=== PATIENT | female | born 2000 | race Caucasian/White ===

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

== ENCOUNTER 2018-07-17 18:51 | Emergency (ER) | END 2018-07-17 20:52 | disposition home or self-care (01) ==

== ENCOUNTER 2018-11-27 09:58 | Emergency (ER) | payer MEDICAID, OTHER ==
[~2018-11-27] VITALS: Wt 65.7 kg
[~2018-11-27 09:58] MED LIST changes: +AMOX500C2 PO; +FAMO-96 PO; +HYDR-4011 PO; -HYDR-906 PO; -NAPR-260 PO; +NAPR-985 PO
[2018-11-27 10:05] VITALS: BP 122/74; PULSE 99; RESP 18
[2018-11-27] MEDS ORDERED: ONDANSETRON (ODT) 4 MG TAB ODT STA (11:23)
[2018-11-27] MEDS ORDERED: ONDA8TAB14 PO (11:55)
--- NOTE | 2018-12-05 17:59 | ERD ---
ER Documentation Chief Complaint Chief Complaint vomiting,diarrhea today HPI 18-year-old female presents emerged department complaining of nonbilious nonbloody vomiting and nonbloody diarrhea since today. She denies any fevers. Denies abdominal pain. Denies any history of abdominal surgeries ROS All systems reviewed and are negative except as per history of present illness. Medications Home Meds Active Scripts Ondansetron (Ondansetron Odt) 8 Mg Tab.rapdis, 8 MG PO Q6H PRN for NAUSEA AND/OR VOMITING, #30 TAB Prov:DICK THORNEC 11/27/18 Famotidine* (Pepcid*) 20 Mg Tablet, 20 MG PO BID for 4 Days, TAB Prov:SARAH PINEDO 07/17/18 Ibuprofen* (Motrin*) 600 Mg Tab, 600 MG PO Q6, #30 TAB Prov:SARAH PINEDO 07/17/18 Ibuprofen* (Motrin*) 600 Mg Tab, 600 MG PO Q6, #30 TAB Prov:KELLY LAND PA-C 08/03/17 Amoxicillin* (Amoxicillin*) 500 Mg Cap, 500 MG PO BID for 10 Days, CAP Prov:KELLY LANDC 08/03/17 Neomycin Wheeler/Bacitrac Zn/Poly (Neosporin Ointment Packet) 1 Each Oint.pack, 1 PACKET TOP BID, #1 BOX Prov:MERCEDES MORTON NP 03/28/17 Ibuprofen* (Motrin*) 600 Mg Tab, 600 MG PO Q6H PRN for PAIN AND OR ELEVATED TEMP, #30 TAB Prov:MERCEDES MORTON NP 03/28/17 Amoxicillin/Potassium Clav (Amox-Clav 875-125 mg Tablet) 875-125 mg Tab, 1 TAB PO BID for 10 Days, #20 TAB Prov:MERCEDES MORTON NP 03/28/17 Hydrocodone/Acetaminophen ([place] 5-325 Tablet) 1 Each Tablet, 1 TAB PO Q6H PRN for PAIN, #7 TAB Prov:SARAH PINEDO 11/09/16 Ibuprofen* (Motrin*) 600 Mg Tab, 600 MG PO Q6, #30 TAB Prov:SARAH PINEDO 11/09/16 Naproxen* (Naprosyn*) 500 Mg Tablet, 500 MG PO BID PRN for PAIN AND/OR INFLAMMATION, #30 TAB Prov:PARTH APONTEZASUJIT Tuttle PA-C 03/13/16 Metronidazole* (Flagyl*) 500 Mg Tablet, 500 MG PO BID for 7 Days, TAB Prov:DAVIAN WESTBROOK PA-C 08/23/15 Sulfamethoxazole-Trimethoprim* (Bactrim* DS) 800-160 Mg Tab, 1 TAB PO BID for 5 Days, TAB Prov:DAVIAN WESTBROOK PA-C 08/23/15 Allergies Allergies: Coded Allergies: No Known Allergy (Unverified , 11/27/18) PMhx/Soc History of Surgery: No Anesthesia Reaction: No Hx Neurological Disorder: No Hx Respiratory Disorders: Yes (asthma) Hx Cardiac Disorders: No Hx Psychiatric Problems: No Hx Miscellaneous Medical Probl: Yes (migraines) Hx Alcohol Use: No Hx Substance Use: No Hx Tobacco Use: No Smoking Status: Never smoker Physical Exam Physical Exam Const: No acute distress Head: Atraumatic Eyes: Normal Conjunctiva ENT: Normal External Ears, Nose and Mouth. Neck: Full range of motion. No meningismus. Resp: Clear to auscultation bilaterally Cardio: Regular rate and rhythm, no murmurs Abd: Soft, non tender, non distended. Normal bowel sounds Skin: No petechiae or rashes Back: No midline or flank tenderness Ext: No cyanosis, or edema Neur: Awake and alert Psych: Normal Mood and Affect Results 24 hrs Current Medications Medications Dose Sig/Leoncio Start Time Status Last (Trade) Ordered Route PRN Stop Time Admin Dose Reason Admin Ondansetron 8 mg ONCE STAT 11/27/18 DC 11/27/18 HCl (Zofran ODT 11:23 11/27/18 11:26 Odt) 11:24 Procedures/MDM 18-year-old female patient with vomiting and diarrhea, due to viral gastroenteritis vs food poisoning. Low suspicion for pseudomembranous colitis, diverticulitis, appendicitis, cholecystitis, pancreatitis, or other abdominal emergencies or acute cardiopulmonary conditions due to physical examination and diagnostic testing. Patient was given Zofran and passed PO challenge. Patient is hemodynamically stable for discharge. Prescription Zofran was given. Discussed to increase fluids. Discussed to return to the ED if not improving as expected or for any worsening conditions. Patient understood and agreed with this plan. Departure Diagnosis: Primary Impression: Nausea, vomiting, and diarrhea Condition: Stable Patient Instructions: Diet, Vomiting Or Diarrhea [6Yr-Adult], Gastroenteritis, Viral (6Y-Adult), Vomiting And Diarrhea, Nonspecific (Adult) Referrals: DOCTOR,NOT ON STAFF (PCP) Additional Instructions: Drink more fluids, such as pedialyte DICK THORNE PA-C Dec 05, 2018 17:59
== END 2018-11-27 12:08 | disposition home or self-care (01) ==
LOC: FTE 09:58
DX: R11.2 Nausea with vomiting, unspecified (principal); R19.7 Diarrhea, unspecified; J45.909 Unspecified asthma, uncomplicated
CPT/HCPCS: 99283